=== PATIENT | female | born 1950 | race Caucasian/White ===

== ENCOUNTER → 2016-09-14 | Outpatient (CLI) | payer OTHER, MEDICARE ==
--- NOTE | 2016-09-14 17:37 | CR ---
EXAMINATION: Left RIBS HISTORY: Pain COMPARISON: Chest radiograph dated 05/05/2016 TECHNIQUE: 3 views FINDINGS/IMPRESSION: There is no acute osseous abnormality or displaced rib fracture identified. No pneumothorax or pleural effusion. Bone mineralization appears normal.
== END ==
LOC: MW.CHFP 14:37
PROVIDERS: ATTEND Nurse Practitioner Family
DX: R07.81 Pleurodynia (principal)
CPT/HCPCS: 71100-26-LT; 71100-LT